=== PATIENT | female | born 1980 | race Caucasian/White ===

== ENCOUNTER 2019-04-22 11:32 | Day surgery (SDC) | payer BC ==
[~2019-04-22 11:32] MED LIST: Buffered Lidocaine 1% SYRIN* 1 ML/SYRINGE INTRADERM ONE; Lactated Ringers 1000 ML Bag* 1,000 ML IV SCH
[2019-04-22] MEDS ORDERED: Buffered Lidocaine 1% SYRIN* 1 ML/SYRINGE INTRADERM ONE (12:02)
[2019-04-22] MEDS ORDERED: ceFAZolin 2 GM in NS PREMIX(*) 2 GM/100 ML BAG IVPB ONE (12:02)
[2019-04-22] MEDS ORDERED: Propofol* 10 MG/ML 20 ML BTL ONE (12:05)
[2019-04-22] MEDS ORDERED: Lidocaine 2% PF * 5 ML VIAL ONE (12:06)
[2019-04-22] MEDS ORDERED: fentaNYL* 50 MCG/ML 2 ML VIAL (100 MCG VIAL) ONE (12:10)
[2019-04-22] MEDS ORDERED: Midazolam* 1 MG/ML 2 ML VIAL (2 MG) ONE (12:10)
[2019-04-22] MEDS ORDERED: Rocuronium* 10 MG/ML VIAL ONE (13:35)
[2019-04-22] MEDS ORDERED: Acetaminophen TAB* 325 MG PO PRN (14:05)
[2019-04-22] MEDS ORDERED: fentaNYL* 50 MCG/ML 2 ML VIAL (100 MCG VIAL) IV PRN (14:05)
[2019-04-22] MEDS ORDERED: oxyCODONE TAB* 5 MG TAB PO PRN (14:05)
[2019-04-22] MEDS ORDERED: DiMENhydriNATE IV* 50 MG/ML VIAL IV PUSH PRN (14:05)
[2019-04-22] MEDS ORDERED: Naloxone* 0.4 MG/ML 1 ML VIAL IV PRN (14:05)
[2019-04-22] MEDS ORDERED: Ketorolac INJ* 30 MG/ML 1 ML VIAL ONE (14:08)
[2019-04-22] MEDS ORDERED: Metoclopramide IV* 5 MG/ML 2 ML VIAL ONE (14:08)
[2019-04-22] MEDS ORDERED: Ondansetron INJ* 2 MG/ML VIAL ONE (14:08)
[2019-04-22] MEDS ORDERED: Dexamethasone IV* 4 MG/ML 1 ML (4 MG) ONE (14:08)
[2019-04-22] MEDS ORDERED: Glycopyrrolate IV* 0.2 MG/ML 1 ML VIAL ONE (14:41)
[2019-04-22] MEDS ORDERED: Neostigmine Methylsulfate* 1 MG/ML 10 ML VIAL (1 mg/ml) ONE (14:41)
--- NOTE | 2019-04-22 15:00 | OP ---
Operative Report - Blank - Operative Report Date of Operation: 04/22/19 Note: PATIENT: Yuliana Harvey DATE OF : 1980 DATE OF SURGERY: 04/22/2019 SURGEON: Thierno Swain MD SPRING INTERN: LESLIE Levy, whos assistance was necessary for positioning, retraction, help with instrumentation, and closure. ANESTHESIOLOGIST: Dr. Duval PREOPERATIVE DIAGNOSIS: Left Achilles contracture POSTOPERATIVE DIAGNOSIS: Left Achilles contracture and posterior ankle contracture OPERATION: 1. Left Achilles tendon lengthening 2. Left leg posterior compartment fasciotomy 3. Left ankle and subtalar joint arthrotomies and posterior capsular releases ANESTHESIA: GETA IMPLANTS: none TOURNIQUET TIME: Less than 1 hour with a well-padded thigh tourniquet at 250mmHg SPECIMENS: none ESTIMATED BLOOD LOSS: minimal COMPLICATIONS: none STATUS: Stable from the operating room to the recovery room and then home. INDICATIONS FOR PROCEDURE: Yuliana has a left equinus contracture causing pain and difficulty with ambulation. Both operative and non operative treatment alternatives were reviewed. Further, the nature and risks of surgery were reviewed in careful detail in the office as well as in the preoperative holding area. Our discussions regarding the risks of surgery included, but were not limited to, infection, wound problems, nerve injury, neuroma, RSD, persistent symptoms, blood clot, rupture, failure of the surgery, and even the remote chance of catastrophic complication. DESCRIPTION OF PROCEDURE: The patient was seen in the preoperative holding unit and informed written consent was obtained. The appropriate extremity was marked. The patient was then brought to the operating room and carefully positioned on the operating room table in the prone position. Anesthesia was induced. All bony prominences were padded with great care. A well-padded thigh tourniquet was placed. A chlorhexidine based pre-scrub was performed followed by a chloraprep prep and drape in standard sterile fashion. A surgical safety pause was then conducted in which we confirmed the appropriate patient, extremity, planned procedure, availability of equipment, indication and administration of prophylactic antibiotics, and DVT prophylaxis in the form of a compression boot on the non- surgical extremity. I began with an exam under anesthesia and he was 60 degrees shy of neutral with ankle dorsflexion. Exsanguination of the extremity was performed and the tourniquet was inflated. I began by utilizing a longitudinal incision overlying non-insertional Achilles tendon. I then carefully dissected down to the peritenon layer, which was opened in line with the skin incision. I exposed the Achilles tendon and performed the cuts for a Z-lengthening. This provided an improvement in dorsiflexion, but she still had an equinus contracture. Therefore, I decided to move forward with a posterior compartment fasciotomy and release of the posterior ankle and subtalar joints. A deep posterior compartment fasciotomy was performed with Metzenbaum scissors. I then carefully dissected with the Metzenbaum scissors to the posterior aspect of the ankle and subtalar joints. There was a large amount of scar tissue formed in this area. I carefully found the FHL tendon and retracted this, along with the neurovascular bundle, medially. I then used a 15 blade scalpel to release the posterior aspect of the ankle and subtalar joint capsules. I was then able to bring the ankle into 5 degrees of dorsiflexion. The Achilles tendon was then repaired in a lengthened position with #2 fiber wire. The wound was then copiously irrigated and meticulously closed in layers utilizing 3-0 Monocryl for the paratenon and subdermal layer, and 3-0 nylon for the skin. A sterile dressing was then applied followed by a splint with the ankle in a neutral position. The patient was then awakened from anesthesia and transferred to the recovery room in stable condition. There were no complications. All needle and sponge counts were correct at the end of the case. ATTESTATION: I attest I was present and scrubbed and performed the critical portions of the procedure myself. POSTOPERATIVE PLAN: The patient will follow-up in 2 weeks for likely suture removal. We will plan on 6 weeks, nonweightbearing, in a short-leg cast.
[2019-04-22] MEDS ORDERED: Bupivacaine 0.25% SDV* 30 ML ONE (15:01)
[2019-04-22] MEDS ORDERED: oxyCODONE TAB* 5 MG TAB ONE (15:24)
[2019-04-22 15:39] VITALS: BP 99/78
== END 2019-04-22 16:21 | disposition home or self-care (01) ==
LOC: OR 11:32
PROVIDERS: ATTEND Orthopaedic Surgery
DX: M67.02 Short Achilles tendon (acquired), left ankle (principal); Q66.12 Congenital talipes calcaneovarus, left foot; M24.572 Contracture, left ankle; Q05.9 Spina bifida, unspecified; E66.9 Obesity, unspecified; M54.2 Cervicalgia; M54.9 Dorsalgia, unspecified; F41.9 Anxiety disorder, unspecified; I10 Essential (primary) hypertension
CPT/HCPCS: 81025; A9270-GY; J0690; J1100; J1885; J2250; J2405; J2704; J2710; J2765; J3010; J3490